=== PATIENT | male | born 1970 | race Caucasian/White ===

== ENCOUNTER → 2017-01-16 | Outpatient (CLI) | payer OTHER ==
--- NOTE | 2017-01-16 08:56 | DIAGNOSTIC IMAGING REPORT ---
L KNEE 4 OR MORE HISTORY: 46 years-old Male LEFT KNEE DJD acute left knee pain with degenerative joint disease. History of prior knee surgery. COMPARISON: Left knee radiographs 07/12/2015 TECHNIQUE: AP view of the bilateral knees with lateral, tunnel and sunrise views of the left knee FINDINGS: No significant degenerative changes of the right knee. Tricompartmental osteoarthritis of the left knee is noted with mild to moderate disease within the medial compartment and mild disease within the lateral and patellofemoral compartments. Chondrocalcinosis is noted. Postoperative changes from prior ACL graft repair. Small left knee joint effusion without acute fracture, dislocation or intra-articular loose body. Nonspecific linear calcifications are noted posteriorly about the proximal tibia and fibula. IMPRESSION: 1. Small left knee joint effusion without acute fracture or dislocation. 2. Tricompartmental osteoarthritis about the left knee, mild to moderate within the medial compartment. 3. Postoperative changes compatible with prior ACL graft repair. The above report was generated using voice recognition software. It may contain grammatical, syntax or spelling errors. Electronically signed by: Rashel Simpson M.D. 01/16/2017 8:55 AM Dictated Date/Time: 01/16/2017 8:52 AM
== END | disposition home or self-care (01) ==
LOC: C.RDSM 09:00
PROVIDERS: ATTEND Physician Assistant
DX: M17.32 Unilateral post-traumatic osteoarthritis, left knee (principal)

== ENCOUNTER 2019-01-02 13:04 | Observation (INO) ==
--- OUTSIDE RECORDS SUMMARY | 2019-01-02 13:07 | External Medical Summary | Continuity of Care Document ---
:1970 Author Name Debi Hermosillo Address Unavailable Unavailable , Care Team Providers Name Role Phone Coco GREENE Unavailable [email or web address] Unavailable Unavailable Unavailable Unavailable Unavailable Assessments Assessed Problems:Encounter for preventive health examinationTravel advice encounter Problems Travel advice encounter (V65.49) (Z71.84) Allergies and Adverse Reactions Allergy history not documented Medications Ciprofloxacin HCl - 500 MG Oral Tablet; 1 tab po bid x 2 DO Meghan Blankenship Start: 19-May-2016 Quantity: 2 Refills: 0 Vivotif Ingrid Vaccine Oral Capsule Delay ed Release; one tab every other day with food for four doses DO Meghan Sepulveda Start: 19-May-2016 Quantity: 4 Refills: 0 Procedures Procedures not documented Immunizations Hepatitis A, adult On: 19-May-2016 9:45 Lot #: [id number], [facility] [facility] Interventions Medication ChangesCiprofloxacin HCl - 500 MG Oral Tablet - StartVivotif Ingrid Vaccine Oral Capsule Delayed Release - StartMedications/Immunizations AdministeredHepatitis A, adult; Done: 19 May 2016Discussion/SummaryThe patient will be given his 1st hepatitis a vaccine today. He is instructed to come back in 6 months for a 2nd vaccine. He will be given a prescription for typhoid fever vaccine. Instructions were reviewed. He will also be given a prescription for Cipro if needed for traveler's diarrhea. Instructions were reviewed. He was informed about mosquito protective mechanisms as there is concern for dengue f ever. All questions were answered. Plan of Treatment Planned Observations Planned Goals not documented Results No Known Results Results not documented Encounters Appointment; Meghan Sepulveda DO 19-May-2016 9:30 Encounter Diagnosis: Problem not documented
--- NOTE | 2019-01-02 13:26 | XRay Report ---
XR chest 1V portable CLINICAL HISTORY: Atypical chest pain COMPARISON STUDY: March 2014 FINDINGS: The heart is the upper limits of normal in size. There is no failure. There is no focal pul monary consolidation. There are no pleural effusions. There is no pneumothorax.[ IMPRESSION: No active disease in the chest. Electronically signed by: Ortiz Gar M.D. 01/02/2019 1:24 PM
[2019-01-02 13:57] LABS: Basophils # (auto) 0.01 K/uL (0-0.2); Basophils % (auto) 0.2 %; Eosinophils # (auto) 0.08 K/uL (0-0.5); Eosinophils % (auto) 1.5 %; Hematocrit (blood only) 40.9 % (42-52); Hemoglobin 14.3 g/dL (14.0-18.0); Immature Granulocytes # (auto) 0.02 K/uL (0.00-0.02); Immature Granulocytes % (auto) 0.4 %; Lymphocytes % (auto) 20.7 %; Mean Corpuscular Volume 85.9 fL (80-100); Mean Platelet Volume 9.1 fL (7.4-10.4); Monocytes # (auto) 0.39 K/uL (0.11-0.59); Monocytes % (auto) 7.3 %; Neutrophils # (auto) 3.72 K/uL (1.4-6.5); Neutrophils % (auto) 69.9 %; Platelet Count 208 K/uL (130-400); RDW Coefficient of Variation 12.4 % (11.5-14.5); RDW Standard Deviation 39.2 fL (36.4-46.3); Red Blood Count 4.76 M/uL (4.7-6.1); White Blood Count 5.32 K/uL (4.8-10.8)
--- NOTE | 2019-01-02 14:00 | Emergency Department Note ---
Entered by Carlene Plasencia acting as a scribe for History of Present Illness General Chief complaint: Chest Pain Stated complaint: CHEST PAIN - 2 DAYS Time Seen by Provider: 01/02/19 13:13 Source: patient History of Present Illness Onset (ago): day(s) 2 Location: chest Pain Consistency: + other (persistent) Maximum Pain Intensity: 3 Quality: + other (strain) Associated symptoms: + denies other symptoms (shortness of breath) and + other (anxiety about symptoms) The patient is a 48 year old male that is presenting to the Emergency Room with complaints of persistent chest pain that started 2.5 days ago. The patient reports that the pain is located in the left side of his chest. He states that it feels like a pulled muscle but he denies any injury to the area. He notes that he was exercising on a stair master 2 days ago and felt like two sledgehammers went down onto his chest. He states that he continued exercising and the feeling went away. He denies any shortness of breath. The patient reports that he was planning on going to see his provider at [facility] tomorrow but his asked him to come to the ED today. He denies any significant cardiac history in his family. He denies any chronic illnesses. He denies any daily medications other than Glucosamine. The patient notes that he recently had a friend of a heart attack at the age of 48 so he is feeling slightly anxious about his symptoms. Home Medications Home Medications Medication Instructions Recorded Confirmed Type No Known Home Medications 01/02/19 01/02/19 History Allergies Allergy/AdvReac Type Severity Reaction Status Date / Time No Known Allergies Allergy Unverified 01/02/19 14:21 Past Med/Surg History Medical History ACL (anterior cruciate ligament) tear (Resolved) Carbon monoxide exposure (Resolved) Penile pain (Resolved) Exposure to STD (Resolved) Pharyngitis (Resolved) Chest pain (Acute) Family History Other No significant family history Social History marital status: Current Living Situation: Spouse current occupational status: employed Feels Safe at Home: Yes Smoking Status: Never smoker Review of Systems See HPI for pertinent positives & negatives. and A total of 10 systems reviewed and were otherwise negative Physical Exam Vital Signs Vital Signs - 24 hr 01/02/19 13:10 01/02/19 13:56 01/02/19 13:57 Temperature 36.9 C Temperature Source Oral Sepsis Recent Fever Within 48 Hours No Sepsis New/Unexplained Change in Mental Status No Sepsis Action Taken by Nursing No Action Required Pulse Rate 67 Pulse Rate [Right Finger] Pulse Rhythm [Right Finger] Pulse Strength [Right Finger] Respiratory Rate 16 Respiratory Effort / Characteristics Non-Labored Respiratory Depth Normal Blood Pressure 178/98 H Blood Pressure [Right Arm] Blood Pressure Mean 124 Blood Pressure Mean [Right Arm] Blood Pressure Position [Right Arm] Pulse Oximetry 97 99 99 Oxygen Delivery Method Room Air Room Air 01/02/19 14:18 01/02/19 14:20 Temperature Temperature Source Sepsis Recent Fever Within 48 Hours Sepsis New/Unexplained Change in Mental Status Sepsis Action Taken by Nursing Pulse Rate Pulse Rate [Right Finger] 63 Pulse Rhythm [Right Finger] Regular Pulse Strength [Right Finger] Normal Respiratory Rate 20 Respiratory Effort / Characteristics Respiratory Depth Blood Pressure Blood Pressure [Right Arm] 136/83 Blood Pressure Mean Blood Pressure Mean [Right Arm] 100 Blood Pressure Position [Right Arm] Lying Pulse Oximetry 96 96 Oxygen Delivery Method Room Air Room Air CONSTITUTIONAL/VITAL SIGNS: Reviewed / noted above. GENERAL: Non-toxic in appearance. INTEGUMENTARY: Warm, dry, and [place]. HEAD: Normocephalic. EYES: without scleral icterus or trauma. ENT/OROPHARYNX: clear and moist. LYMPHADENOPATHY/NECK: Is supple without lymphadenopathy or meningismus. RESPIRATORY: Lungs clear and equal. CARDIOVASCULAR: Regular rate and rhythm. GI/ABDOMEN: Soft and nontender. No organomegaly or pulsatile mass. No rebound or guarding. Normal bowel sounds. EXTREMITIES: Warm and well perfused. BACK: No CVA tenderness. NEUROLOGICAL: Intact without focal deficits. PSYCHIATRIC: normal affect. MUSCULOSKELETAL: Normally developed with good muscle tone. Course 1316:The patient was evaluated in room C08. A complete history and physical examination was performed. 1435: I updated the patient on his lab and imaging results. He verbalized agreement with the treatment plan. He will be evaluated for further management and care by the hospitalist. 1440: I discussed the patient's case with MARK Bernard, who will evaluate the patient for further management and care with Dr. Aponte as the attending physician. Administered Medications Discontinued Medications Aspirin (Aspirin) 324 mg PO NOW STA Stop: 01/02/19 14:33 Last Admin: 01/02/19 14:38 Dose: 324 mg Documented by: [id number] Medical Decision Making Differential Diagnosis Differential considered includes acute myocardial infarction, acute coronary syndrome, myocarditis, pericarditis, pericardial effusions /tamponad, esophageal perforation, thoracic aortic dissection, pulmonary embolism, pneumonia, pneumothorax, pancreatitis, shingles, acute cholecystitis, perforated abdominal viscus. Medical Records Attestation: I reviewed the patient's medical records. Home Medications Current Medication List: was personally reviewed by me Laboratory Data Attestation: I reviewed the patient's lab results. Result diagrams: 01/02/19 13:40 01/02/19 13:40 Lab Results 01/02/19 01/02/19 Range/Units 13:40 13:40 WBC 5.32 (4.8-10.8) K/uL RBC 4.76 (4.7-6.1) M/uL Hgb 14.3 (14.0-18.0) g/dL Hct 40.9 L (42-52) % MCV 85.9 (80-100) fL MCH 30.0 (25-34) pg MCHC 35.0 (32-36) g/dL RDW Std Deviation 39.2 (36.4-46.3) fL RDW Coeff of Juany 12.4 (11.5-14.5) % Plt Count 208 (130-400) K/uL MPV 9.1 (7.4-10.4) fL Immature Gran % (Auto) 0.4 % Neut % (Auto) 69.9 % Lymph % (Auto) 20.7 % [place] % (Auto) 7.3 % Eos % (Auto) 1.5 % Baso % (Auto) 0.2 % Immature Gran # (Auto) 0.02 (0.00-0.02) K/uL Neut # (Auto) 3.72 (1.4-6.5) K/uL Lymph # (Auto) 1.10 L (1.2-3.4) K/uL [place] # (Auto) 0.39 (0.11-0.59) K/uL Eos # (Auto) 0.08 (0-0.5) K/uL Baso # (Auto) 0.01 (0-0.2) K/uL Sodium 140 (136-145) mmol/L Potassium 3.9 (3.5-5.1) mmol/L Chloride 107 (98-107) mmol/L Carbon Dioxide 27 (21-32) mmol/L Anion Gap 6.0 (3-11) BUN 15 (7-18) mg/dl Creatinine 0.98 (0.6-1.4) mg/dl Est Cr Clr Drug Dosing 108.4 ml/min Est GFR ( Amer) 106.7 Est GFR (Non-Af Amer) 92.1 BUN/Creatinine Ratio 15.3 (10-20) Glucose 96 (70-99) mg/dl Calcium 8.3 L (8.5-10.1) mg/dl Total Bilirubin 0.3 (0.2-1) mg/dl AST 26 (15-37) U/L ALT 38 (12-78) U/L Alkaline Phosphatase 89 (45-117) U/L Troponin I 0.055 H* (0-0.045) ng/ml Total Protein 7.3 (6.4-8.2) gm/dl Albumin 3.9 (3.4-5.0) gm/dl Globulin 3.4 (2.5-4.0) gm/dl Albumin/Globulin Ratio 1.2 (0.9-2) Lipase 83 (73-393) U/L Imaging Data Radiologist's Impression: Radiology results as stated below per my review and the radiologist's interpretation: XR chest 1V portable CLINICAL HISTORY: Atypical chest pain COMPARISON STUDY: March 2014 FINDINGS: The heart is the upper limits of normal in size. There is no failure. There is no focal pulmonary consolidation. There are no pleural effusions. There is no pneumothorax. IMPRESSION: No active disease in the chest. Electronically signed by: Ortiz Gar M.D. 01/02/2019 1:24 PM ECG Data Attestation: I personally reviewed and interpreted this ECG as follows: Indication: chest pain Rate (beats per minute): 63 Rhythm: normal sinus Findings: no PAC, no PVC, no ST elevation and no ectopy Comparison ECG Date: from (04/06/2014) Change: no significant change Blood Pressure Blood Pressure Findings: Elevated blood pressure Blood Pressure Disposition: elevated BP felt to be situational MDM Narrative This is a 48-year-old male who presents to the ED with a chief complaint of chest pain on the left side for the past 2-1/2 days. The patient states that it feels like he pulled his left pectoralis muscle but does not recall any specific exercise that he could have pulled on. The patient reports that he had a friend from a heart attack at 48 years old last week. This is made him concerned and his requested to come in and have his symptoms checked. He denies any early family history of cardiac issues. He denies having any past medical history. He does not take any medicine on a daily basis. Does not smoke. His physical exam was normal. He is in no distress. He denies any other associated symptoms such as nausea, diaphoresis or dyspnea. The patient's twelve-lead EKG shows a normal sinus rhythm at a rate of 63 without acute injury or ectopy. A chest x-ray was negative for acute disease. CBC and chemistry panel was unremarkable. Troponin was positive. The patient was told the results of the test. He will be seen by the hospitalist for further evaluation and care. He was given aspirin p.o. as well as heparin IV. Impression & Plan Chest pain, Elevated troponin Discharge Plan Visit Data Chief Complaint: Chest Pain Stated Complaint: CHEST PAIN - 2 DAYS ED Provider: Saji Maloney Discharge Problem: Chest pain, Elevated troponin Patient Disposition: Being Evaluated by Hospitalist Condition: Good Forms Stand Alone Forms: Call Back Authorization Prescriptions Prescriptions: No Action No Known Home Medications RF: 0 Referrals Referrals: Gustavo Ward DO [Primary Care Provider] - Discharge Problem: Chest pain Qualifiers: Chest pain type: precordial pain Qualified Code(s): R07.2 - Precordial pain The scribe's documentation has been prepared under my direction and personally reviewed by me in its entirety. I confirm that the note above accurately reflects all work, treatment, procedures, and medical decision making performed by me.
[2019-01-02 14:14] LABS: Albumin Level 3.9 gm/dl (3.4-5.0); BUN Creatinine Ratio 15.3 (10-20); Calcium 8.3 mg/dl (8.5-10.1); Creatinine Clr Calc Pharmacy 108.4 ml/min; Est GFR (African American) 106.7; Est GFR (Non-African American) 92.1; Potassium 3.9 mmol/L (3.5-5.1)
[2019-01-02 14:29] LABS: Albumin Globulin Ratio 1.2 (0.9-2); Bilirubin,Total 0.3 mg/dl (0.2-1); Globulin 3.4 gm/dl (2.5-4.0); Total Protein 7.3 gm/dl (6.4-8.2); Troponin I 0.055 ng/ml (0-0.045)
[2019-01-02] MEDS ORDERED: ASPIRIN CHEW 324 MG PO STA (14:32)
[2019-01-02 15:35] LABS: Partial Thromboplastin Time 28.4 Seconds (21.0-31.0)
[2019-01-02] MEDS ORDERED: HEPARIN SOD (PORCINE) 1000 UNIT/ML 10 ML VIAL ONE (15:44)
[2019-01-02] MEDS: HEPARIN SODIUM/DEXTROSE 25,000 UNITS/500 ML BAG IV SCH (15:49)
[2019-01-02] MEDS ORDERED: NITROGLYCERIN SL 0.4 MG/TAB TAB SL PRN (16:52)
[2019-01-02] MEDS ORDERED: ACETAMINOPHEN 325 MG TAB PO PRN (16:52)
--- NOTE | 2019-01-02 19:02 | History & Physical Report ---
Date of Service January 02, 2019 Assessment & Plan (1) Chest pain: (2) Elevated troponin: -Admit to telemetry -Patient presenting with 2 days of left-sided chest pain that patient describes as a muscle ache/pull -Seems to be musculoskeletal in nature however patient is found to have a mildly elevated troponin at 0.055 -No risk factors identified -No acute ST changes on EKG -Started on IV heparin in the ED, will continue with -Serial cardiac enzymes, check resting echo -Lipid panel and HbA1c in a.m. -Cariology consult (3) DVT prophylaxis: -On IV heparin as above History of Present Illness Chief Complaint: Chest pain Primary Care Provider: Gustavo Ward DO 48-year-old male who presents the ED with chest pain. Patient reports he developed chest pain about 2 days ago. Describes the pain as a muscle ache/pull. Pain is located on the left side of his chest. Pain has been mostly persistent and nonexertional. Patient reports he was working out a few days ago and while on the elliptical, he had episode of palpitations. Patient reports this is chronic for him and happens from time to time. However he does report that this was the first time he was working out in about 6 months. Patient denies any prior episodes of chest pain. No associated shortness of breath, nausea, diaphoresis. Denies lightheadedness, dizziness, diaphoresis, syncopal events. No other recent illnesses, fevers, chills. He denies any urinary symptoms. In the ED, EKG does not show any acute ST changes. Initial troponin is mildly elevated at 0.055. Patient was given a full dose aspirin and started on a heparin drip. Allergies Allergy/AdvReac Type Severity Reaction Status Date / Time No Known Allergies Allergy Unverified 01/02/19 14:21 Home Medications Home Medications Medication Instructions Recorded Confirmed Type glucosamine sulfate [Glucosamine] 1,500 mg PO DAILY 01/02/19 01/02/19 History Past Med/Surg History Medical History ACL (anterior cruciate ligament) tear (Resolved) Surgical History H/O arthroscopic knee surgery (Chronic) Social History Preferred Language: Kyrgyz Rn Pediatric Icu Required: No Beliefs That Will Affect Care: None marital status: Current Living Situation: Spouse current occupational status: employed Other Information That Helps Us Care for You: No Feels Safe at Home: Yes Smoking Status: Never smoker Hx Alcohol Use: Yes Alcohol type: beer Review of Systems Review of Systems: ROS per HPI, all other systems reviewed and negative Physical Exam Constitutional: WD/WN, vitals as above Eyes: PERRL, conjunctivae normal, anicteric sclerae ENMT: external ear and nose normal, oropharynx normal Respiratory: normal respiratory effort, lungs clear to auscultation Cardiovascular: Rate/Rhythm: regular rate and regular rhythm Vessels: normal peripheral pulses Extremities: no edema Chest (Breasts): Additional Comments: Chest wall not tender to palpation Gastrointestinal (Abdomen): normal bowel sounds, soft, nontender, no hepatosplenomegaly Musculoskeletal: no cyanosis or clubbing, extremities motor strength 5/5 Skin: no rashes, warm and dry Neurologic: PERRL, EOMI, accommodation nl, no face palsy, no dysarthria Psychiatric: A+Ox3, euthymic affect Results & Data Vital Signs (Past 12 Hours) Vital Signs Temp Pulse Pulse Resp BP BP Pulse Ox 01/02/19 16:59 37 C 63 18 152/90 H 99 01/02/19 16:09 64 18 130/84 97 01/02/19 14:20 96 01/02/19 14:18 63 20 136/83 96 01/02/19 13:57 99 01/02/19 13:56 99 01/02/19 13:10 36.9 C 67 16 178/98 H 97 Laboratory Results Short CBC 01/02/19 Range/Units 13:40 WBC 5.32 (4.8-10.8) K/uL Hgb 14.3 (14.0-18.0) g/dL Hct 40.9 L (42-52) % Plt Count 208 (130-400) K/uL BMP 01/02/19 13:40 Sodium 140 Potassium 3.9 Chloride 107 Carbon Dioxide 27 BUN 15 Creatinine 0.98 Glucose 96 Calcium 8.3 L Cardiac Enzymes 01/02/19 01/02/19 Range/Units 13:40 13:40 Total Creatine Kinase 266 Cancelled (39-308) U/L Troponin I 0.055 H* (0-0.045) ng/ml Liver Function 01/02/19 Range/Units 13:40 Total Bilirubin 0.3 (0.2-1) mg/dl AST 26 (15-37) U/L ALT 38 (12-78) U/L Alkaline Phosphatase 89 (45-117) U/L Albumin 3.9 (3.4-5.0) gm/dl Diagnostic Findings CXR IMPRESSION: No active disease in the chest. Code Status & VTE Plan VTE Prophylaxis Plan VTE Prophylaxis will be ordered: Yes Supervising Physician Co-Signing Physician Notes Pt was seen and examined. Agreed with Melania FLORES exam, assessment and plan. 48-year-old male with no PMH presents to the ED with chest pain. Pt said that about 2 days ago he was doing vigorous exercise activities. He said that pain is located on the left side of his chest. He described the pain ache/dull like a muscle achiness. Currently denies left side right tenderness when applied pressure. Denies any SOB, fever and dizziness. In the ER chest Xray showed no acute finding. Troponin on admission showed mildly elevated at 0.05 and EKG showed no ischemic changes. Heparin drip was starting in the ER. Will trend troponin. Will get an echo in am. Cardiology consult. Will make NPO after midnight. Continue monitor closely in tele. MD Fadi
[2019-01-02 22:41] LABS: Partial Thromboplastin Ratio 2.5
[2019-01-02 22:44] LABS: Partial Thromboplastin Time 66.3 Seconds (21.0-31.0)
[2019-01-03 07:05] LABS: Hematocrit (blood only) 39.8 % (42-52); Hemoglobin 14.3 g/dL (14.0-18.0); Mean Corpuscular Hemoglobin 30.6 pg (25-34); Mean Corpuscular Hgb Conc 35.9 g/dL (32-36); Mean Corpuscular Volume 85.2 fL (80-100); Platelet Count 203 K/uL (130-400); RDW Coefficient of Variation 12.5 % (11.5-14.5); RDW Standard Deviation 38.8 fL (36.4-46.3); Red Blood Count 4.67 M/uL (4.7-6.1); White Blood Count 7.86 K/uL (4.8-10.8)
[2019-01-03 07:24] LABS: Estimated Average Glucose 105 mg/dl; Hemoglobin A1C 5.3 % (4.5-5.6)
[2019-01-03 07:35] LABS: BUN Creatinine Ratio 11.3 (10-20); Calcium 8.7 mg/dl (8.5-10.1); Creatinine Clr Calc Pharmacy 109.7 ml/min; Est GFR (African American) 110.8; Est GFR (Non-African American) 95.6; Potassium 3.8 mmol/L (3.5-5.1)
[2019-01-03 07:42] LABS: Partial Thromboplastin Time 54.6 Seconds (21.0-31.0)
[2019-01-03] MEDS: HEPARIN SODIUM/DEXTROSE 25,000 UNITS/500 ML BAG IV SCH (08:45)
--- NOTE | 2019-01-03 15:35 | Hospitalist Progress Note ---
Date of Service January 03, 2019 Assessment & Plan (1) Chest pain: (2) Elevated troponin: Mostly related to muscles due to vigorous exercise activities 2 days ago Troponin on admission 0.055 then trending to 0.046 No risk factors identified No acute ST changes on EKG Chol 195, LDL 104 and HDL 56 cardiology on board Negative stress test today by cardiology Heparin discontinued case discussed with cardiology recommended to start on Losartan 25mg daily since BP elevated during stress test Continue ibuprofen prn for pain Ok from cardiology standpoint to discharge home Elevated Blood pressure BP increased during stress test Will start on Losartan 25 mg daily Check BMP in 1 week Monitor BP (3) DVT prophylaxis: IV heparin drip discontinued this morning Ambulate Disposition Will discharge home today Follow up with Dr. Candelario on 01/07 @ 12:45 PM Check BMP in 1 week to monitor electrolytes and kidney function Subjective Pt was seen and examined Sitting in chair with no distress Pt said that he feels fine He said that the pain in the left side chest wall area is tolerable He denies any palpitation, dizziness and SOB Physical Exam Physical Exam: General- No acute distress Head- atraumatic Eyes- PERRL, EOMI, ENT- oropharynx clear Neck- supple, no JVD Lungs- clear to auscultation Heart- regular rhythm; no murmur Abdomen- normal bowel sounds, soft, nontender Extremities- no calf tenderness Neuro- alert, oriented x 3; PERRL, EOMI; no facial palsy; no dysarthria Skin- warm & dry Results & Data Vital Signs (Past 12 Hours) Vital Signs Temp Pulse Pulse Resp BP BP Pulse Ox 01/03/19 15:00 70 01/03/19 11:15 37.0 C 92 H 17 121/89 95 01/03/19 08:00 60 01/03/19 07:45 37.0 C 62 17 151/51 H 97
--- NOTE | 2019-01-03 15:54 | Cardiology Consultation ---
Date of Consultation January 03, 2019 Assessment & Plan (1) Chest pain: Nonischemic with a nonischemic exercise stress echocardiogram and the patient completing 12 minutes on a Miquel protocol Chest pain is reproducible with left fourth rib stuck in exhalation. Patient was counseled on pectoral stretching exercises to help move the rib back into place along with the use of [id number] NSAIDs as needed as well as heat and ice packs as needed Should he have any recurrences of chest discomfort is not reproducible in the near future given his abnormal EKG changes with stress testing a coronary CTA may be considered. But again at this time his chest pain is completely reproducible. (2) Elevated troponin: Secondary to peripheral muscle breakdown after the patient recently started a new exercise program (3) Hypertension: Newly discovered hypertension Hypertensive strain EKG pattern present on stress echocardiogram. We will start him on losartan 25 mg daily and a BMP and nurse only blood pressure check will be performed in [address] [facility], my office will call to schedule. I will then see the patient in follow-up in approximately 3 to 4 weeks, my office will call to arrange. History of Present Illness Attending Physician: Milena Aponte MD History of Present Illness It was my pleasure to see Mr. Jackson in consultation today January 03, 2019. He is a very pleasant overall healthy 48-year-old gentleman who presented to [facility] emergency department with complaints of chest discomfort. He states his symptoms started a few days prior to presentation when he was exercising. He has not been exercising on a regular basis as of l ate and has been looking to get back into a regular basis. He was at the gym on the [employer] machine when he suddenly felt his heart started pounding in his chest that lasted approximately 5 beats in a row. He then developed chest discomfort. He described it as a dull achy sensation similar to that of the muscle pull across his left precordium that radiated up into his left arm. He denied any associated shortness of breath, diaphoresis, nausea, lightheadedness, dizziness or syncope. The discomfort then waxed and waned for the next several days and on 01/02/2019 he became concerned and his brought him into the emergency department. Upon presentation his EKG was unremarkable but his troponin was minimally above normal excepted range he is admitted to telemetry and started on heparin. His troponin remained unchanged overnight. But again no ischemic EKG changes. Upon further questioning states his discomfort is more pronounced when he is lying down in the supine position. Then when he sits up and leans over his discomfort resolves. He has not been able to reproduce it with deep palpation and denies any previous similar episodes. Allergies Allergy/AdvReac Type Severity Reaction Status Date / Time No Known Allergies Allergy Unverified 01/02/19 14:21 Home Medications Home Medications Medication Instructions Recorded Confirmed Type glucosamine sulfate [Glucosamine] 1,500 mg PO DAILY 01/02/19 01/02/19 History losartan 25 mg PO DAILY #30 tab 01/03/19 Rx Patient History Medical History ACL (anterior cruciate ligament) tear (Resolved) Surgical History H/O arthroscopic knee surgery (Chronic) Social History Preferred Language: Mohawk Manager Creative Required: No Beliefs That Will Affect Care: None marital status: Current Living Situation: Spouse current occupational status: employed Other Information That Helps Us Care for You: No Feels Safe at Home: Yes Smoking Status: Never smoker Hx Alcohol Use: Yes Alcohol type: beer Review of Systems Review of Systems: All systems reviewed & are unremarkable except as noted in HPI & below Physical Exam Physical Exam: Physical Exam: General: Awake, alert and oriented x 3. No acute distress. HEENT: Normocephalic, atraumatic. Pupils equal, round and reactive to light and accommodation. Extraocular muscles are intact. Anicteric sclera. Moist mucous membranes. Neck: No JVD. No bruit. Cardiovascular: Regular. No S-4. Normal S-1 and S-2. No S-3. No murmurs, rubs or gallops. Pulmonary: Clear to auscultation bilaterally. No rales, rhonchi, or wheezing. Abdomen: Bowel sounds x 4, soft. No rebound, guarding or tenderness. No organomegaly. Extremities: No clubbing, cyanosis or edema. +2 pedal pulses bilaterally. Skin: Warm and dry. Results & Data Vital Signs (Past 12 Hours) Vital Signs Temp Pulse Pulse Resp BP BP Pulse Ox 01/03/19 15:45 37.0 C 67 17 146/84 H 151/51 H 97 01/03/19 15:27 37.0 C 67 17 146/84 H 97 01/03/19 15:00 70 01/03/19 11:15 37.0 C 92 H 17 121/89 95 01/03/19 08:00 60 01/03/19 07:45 37.0 C 62 17 151/51 H 97
[2019-01-03] MEDS ORDERED: LOSARTAN POTASSIUM 25 MG TAB PO SCH (16:00)
--- NOTE | 2019-01-04 08:12 | Discharge Summary ---
Date of Service January 03, 2019 Admission HPI Per Admitting Provider 48-year-old male who presents the ED with chest pain. Patient reports he developed chest pain about 2 days ago. Describes the pain as a muscle ache/pull. Pain is located on the left side of his chest. Pain has been mostly persistent and nonexertional. Patient reports he was working out a few days ago and while on the elliptical, he had episode of palpitations. Patient reports this is chronic for him and happens from time to time. However he does report that this was the first time he was working out in about 6 months. Patient denies any prior episodes of chest pain. No associated shortness of breath, nausea, diaphoresis. Denies lightheadedness, dizziness, diaphoresis, syncopal events. No other recent illnesses, fevers, chills. He denies any urinary symptoms. In the ED, EKG does not show any acute ST changes. Initial troponin is mildly elevated at 0.055. Patient was given a full dose aspirin and started on a heparin drip. Admission Exam Per Admitting Provider Constitutional: WD/WN, vitals as above Eyes: PERRL, conjunctivae normal, anicteric sclerae ENMT: external ear and nose normal, oropharynx normal Respiratory: normal respiratory effort, lungs clear to auscultation Cardiovascular: regular rate and regular rhythm Vessels: normal peripheral pulses Extremities: no edema Chest (Breasts): Chest wall not tender to palpation Gastrointestinal: normal bowel sounds, soft, nontender, no hepatosplenomegaly Musculoskeletal: no cyanosis or clubbing, extremities motor strength 5/5 Skin: no rashes, warm and dry Neurologic: PERRL, EOMI, accommodation nl, no face palsy, no dysarthria Psychiatric: A+Ox3, euthymic affect Principal Diagnosis Chest pain Hypertension Discharge Exam General- No acute distress Head- atraumatic Eyes- PERRL, EOMI, ENT- oropharynx clear Neck- supple, no JVD Lungs- clear to auscultation Heart- regular rhythm; no murmur Abdomen- normal bowel sounds, soft, nontender Extremities- no calf tenderness Neuro- alert, oriented x 3; PERRL, EOMI; no facial palsy; no dysarthria Skin- warm & dry Discharge Data Allergies Allergy/AdvReac Type Severity Reaction Status Date / Time No Known Allergies Allergy Unverified 01/02/19 14:21 Consultations 01/02/19 14:43 ED Decision to Admit Stat 01/02/19 16:52 Consult Cardiology Routine Ordered Studies XR chest 1V portable CLINICAL HISTORY: Atypical chest pain COMPARISON STUDY: March 2014 FINDINGS: The heart is the upper limits of normal in size. There is no failure. There is no focal pulmonary consolidation. There are no pleural effusions. There is no pneumothorax.[ IMPRESSION: No active disease in the chest. Electronically signed by: Ortiz Gar M.D. 01/02/2019 1:24 PM Dictated: 01/02/19 1324 Transcribed: 01/02/19 1324 Hospital Course (1) Chest pain: (2) Elevated troponin: Mostly related to muscles due to vigorous exercise activities 2 days ago Troponin on admission 0.055 then trending to 0.046 No risk factors identified No acute ST changes on EKG Chol 195, LDL 104 and HDL 56 cardiology on board Negative stress test today by cardiology Heparin discontinued case discussed with cardiology recommended to start on Losartan 25mg daily since BP elevated during stress test Continue ibuprofen prn for pain Ok from cardiology standpoint to discharge home Follow up with cardiology in 3-4 weeks Hypertension BP increased during stress test Will start on Losartan 25 mg daily Check BMP in 1 week Monitor BP Outpatient follow up for BP check (3) DVT prophylaxis: IV heparin drip discontinued this morning Ambulate Disposition Will discharge home today Follow up with Dr. Candelario on 01/07 @ 12:45 PM Follow up with cardiology in 3-4 weeks Check BMP in 1 week to monitor electrolytes and kidney function Total Time Total Time Spent Total Time Spent (In Minutes): 35 minutes Total Time Includes: Examination of the Patient, Discharge Planning, Medication Reconciliation, Communication With Other Providers and Other Discharge Plan Discharge Items Patient Disposition: Home - Self-Care Reason For Visit: CHEST PAIN, ELEVATED TROP Discharge Diagnosis: Chest pain Condition on Discharge: Good Activity: Resume your previous activity Activity Comment: ast tolerated Non-emergency contact: Primary Care Provider Call non-emergency contact if: you have any medication questions, your symptoms worsen and your pain is not controlled Follow-up/Referrals: Gustavo Ward, [Primary Care Provider] - Diet: Heart Healthy Addtl Attending Provider Instructions: Follow up with Dr. Candelario on 01/07 @ 12:45 PM Follow up with Cardiology Dr. Calvert in 3-4 weeks You will be discharged on Losartan 25mg daily Check BMP in 1 week to monitor electrolytes and kidney function after starting the Losartan Monitor your blood pressure seek medical attention if symptoms worsening Pending Studies at Discharge: No Stand-Alone Forms: Call Back Authorization, My [facility] Medications and DC Order Prescriptions: New losartan 25 mg tablet 25 mg PO DAILY Qty: 30 RF: 0 Continued glucosamine sulfate [Glucosamine] 500 mg Tablet 1,500 mg PO DAILY RF: 0 Discharge Orders: Discharge Order (Routine); Ordered 01/03/19 Ordered By: Milena Schroeder/Other Patient Handouts: Losartan Potassium Oral tablet, High Blood Pressure Stroke Link, Pressure High Blood Admission Data Admit Date/Time: 01/02/19 15:27 Attending Provider: Milena Aponte Admit Provider: Milena Aponte Primary Care Provider: Gustavo Ward Other Providers: Milena Aponte ; Oswaldo Mcmanus Other Interventions: Discharge Summary Assessment (RN) Last Done: 01/03/19 15:45 DC Date/Time DO NOT enter until pt leaves facility: 01/03/19 16:05
== END 2019-01-03 16:05 | disposition home or self-care (01) ==
LOC: ED 13:04 → 2S 15:27 → INTOOBSV 15:27 → 2S 16:25